=== PATIENT | male | born 1985 | race African-American/Black ===

== ENCOUNTER 2022-08-23 11:29 | Emergency (ER) | payer MEDICAID ==
[~2022-08-23] VITALS: Ht 182.9 cm; Wt 102.0 kg
[2022-08-23] MEDS ORDERED: GUAI600T26 MT (12:30)
[2022-08-23] MEDS ORDERED: AMOX1TAB16 MT (12:30)
[2022-08-23] MEDS ORDERED: ACET-2708 MT (12:30)
[2022-08-23 13:12] VITALS: BP 127/78
== END 2022-08-23 13:13 | disposition home or self-care (01) ==
LOC: ER 11:29
DX: H66.92 Otitis media, unspecified, left ear (principal); Z00.00 Encounter for general adult medical examination without abnormal findings
CPT/HCPCS: 99283

== ENCOUNTER 2022-08-31 15:13 | Emergency (ER) | payer MEDICAID ==
[~2022-08-31] VITALS: Ht 182.9 cm; Wt 103.7 kg
[~2022-08-31 15:13] MED LIST: ACET-2708 MT; AMOX1TAB16 MT; GUAI600T26 MT
[2022-08-31 15:26] VITALS: BP 143/78
[2022-08-31] MEDS ORDERED: CIPR-263 MT (18:51)
[2022-08-31] MEDS ORDERED: CIPHCO EACH EAR (18:51)
== END 2022-08-31 19:23 | disposition home or self-care (01) ==
LOC: ER 15:13
DX: H60.91 Unspecified otitis externa, right ear (principal)
CPT/HCPCS: 99283

== ENCOUNTER 2023-10-07 22:03 | Emergency (ER) | payer MEDICAID ==
[~2023-10-07] VITALS: Ht 182.9 cm; Wt 108.0 kg
[~2023-10-07 22:03] MED LIST changes: +CIPHCO EACH EAR; +CIPR-263 MT
[2023-10-07 22:16] VITALS: O2SAT 98
[2023-10-08] MEDS: KETOROLAC 15MG/ML VIAL IM ONE (01:52)
[2023-10-08 02:19] VITALS: BP 134/87; PULSE 56; RESP 18; TEMP 98.1
== END 2023-10-08 02:24 | disposition home or self-care (01) ==
LOC: ER 22:03
DX: S06.0X0A Concussion without loss of consciousness, initial encounter (principal); M25.562 Pain in left knee; V89.2XXA Person injured in unspecified motor-vehicle accident, traffic, initial encounter; Y93.89 Activity, other specified; Y92.89 Other specified places as the place of occurrence of the external cause; Y99.8 Other external cause status
CPT/HCPCS: 99285; 73562; 70450; 96372; J1885